=== PATIENT | female | born 1935 | race Caucasian/White ===

== ENCOUNTER 2022-02-03 18:18 | Inpatient (IN) | payer MEDICARE, MEDICAID ==
[~2022-02-03] VITALS: Ht 147.3 cm; Wt 49.5 kg
[2022-02-03 18:23] VITALS: BP 136/54
[2022-02-03 18:27] VITALS: BP 136/54
[2022-02-03] MEDS ORDERED: VANCOMYCIN 1,000 MG in DEXTROSE 5% 250 ML IV ONE (18:30)
[2022-02-03] MEDS ORDERED: MEROPENEM 1,000 MG in NACL 0.9% 50 ML IV ONE (18:30)
[2022-02-03] MEDS ORDERED: NACL 0.9% 1,000 ML IV ONE ×2 (18:30→21:25)
[2022-02-03] MEDS ORDERED: DILTIAZEM 125 MG in DEXTROSE 5% 100 ML IV ONE (18:50)
[2022-02-03 18:58] VITALS: BP 136/54
[2022-02-03] MEDS ORDERED: DILTIAZEM 125 MG/25 ML VIAL IV ONE (18:59)
[2022-02-03] MEDS ORDERED: MEROPENEM 1,000 MG VIAL IV ONE (19:00)
[2022-02-03] MEDS ORDERED: VANCOMYCIN 1,000 MG VIAL ONE (19:01)
--- NOTE | 2022-02-03 19:05 | NUR ---
PATIENT CAME BY EMS UNDER RESPIRATORY DISTRESS. PT WAS BREATHING AT A RATE 74. PRCESSED ABG AND PLACED PT ON BIPAP WITH 100%, IPAP OF 10 EPAP OF 5 BACK UP RATE OF 12. BIPAP IS PLUGGED INTO RED OUTLET, AMBU BAG AT BEDSIDE WITH SUCTION AND EXTRA FLOW METER. WILL CONTINUE TO MONITOR PATIENT.
[2022-02-03 19:19] LABS: BASOPHILS % (AUTO) 0.3 % (0.0-2.0); HEMATOCRIT 39.1 % (36-48); HEMOGLOBIN 12.6 g/dL (12.0-16.0); LYMPHOCYTES # (AUTO) 0.6 K/uL (2.5-16.5); LYMPHOCYTES % (AUTO) 4.5 % (20.5-51.1); MEAN CORPUSCULAR HEMOGLOBIN 28 pg (27-31); MEAN CORPUSCULAR HGB CONC 32 g/dL (33-37); MEAN CORPUSCULAR VOLUME 87.2 fL (80-94); MONOCYTES # (AUTO) 0.5 K/uL (0.8-1.0); MONOCYTES % (AUTO) 4.2 % (1.7-9.3); NEUTROPHILS # (AUTO) 11.7 K/uL (1.8-7.7); PLATELET COUNT (AUTO) 415 K/uL (140-450); RED BLOOD CELL COUNT(AUTO) 4.48 MIL/uL (4.20-5.40); RED CELL DISTRIBUTION WIDTH 15.3 % (11.6-13.7); WHITE BLOOD COUNT (AUTO) 12.9 K/uL (4.8-10.8)
[2022-02-03 19:34] LABS: PROTHROMBIN TIME 11.4 secs (10.8-13.4)
[2022-02-03 19:40] LABS: ALBUMIN 1.7 g/dL (3.4-5.0); ANION GAP 15.8 (8-16); ASPARTATE AMINOTRANSFERASE 28 U/L (15-37); CARBON DIOXIDE 26.9 mmol/L (21-32); CHLORIDE 125 mmol/L (98-107); CREATININE 1.8 mg/dL (0.6-1.3); GLUCOSE 156 mg/dL (74-106); TOTAL BILIRUBIN 0.3 mg/dL (0.0-1.0); UREA NITROGEN, BLOOD 60 mg/dL (7-18)
[2022-02-03 19:45] LABS: POTASSIUM 2.7 mmol/L (3.5-5.1)
[2022-02-03 19:47] LABS: SODIUM SERUM 165 mmol/L (136-145)
--- NOTE | 2022-02-03 20:10 | NUR ---
Patient lying in bed, alert, chest rise and fall symmetrical, no s/s of distress. Addendum: 02/03/22 at 2017 by [email or web address] Patient lying in bed, alert, chest rise and fall symmetrical, no s/s of distress. Diltiazem infusing at 10 mg/hr via left AC.
--- NOTE | 2022-02-03 20:24 | NUR ---
Patient lying in bed, alert, chest rise and fall symmetrical, no s/s of distress. HR 150, Diltiazem infusing increased to 15 mg/hr via left AC.
[2022-02-03 20:49] LABS: ALBUMIN 1.6 g/dL (3.4-5.0); ASPARTATE AMINOTRANSFERASE 28 U/L (15-37); CARBON DIOXIDE 25.6 mmol/L (21-32); CHLORIDE 125 mmol/L (98-107); CREATININE 1.7 mg/dL (0.6-1.3); GLUCOSE 165 mg/dL (74-106); TOTAL BILIRUBIN 0.3 mg/dL (0.0-1.0); UREA NITROGEN, BLOOD 58 mg/dL (7-18)
--- NOTE | 2022-02-03 20:53 | NUR ---
Dr. Aponte verbally informed patient's BP is 106/48, HR 147, and Diltiazem rate is at maximum rate of 15mg/hr.
[2022-02-03 20:55] LABS: POTASSIUM 2.6 mmol/L (3.5-5.1); SODIUM SERUM 163 mmol/L (136-145)
--- NOTE | 2022-02-03 21:14 | NUR ---
Dr. Aponte verbally reinformed of critical labs and recent vital signs. Dr. Aponte verbalized understanding.
[2022-02-03] MEDS ORDERED: KCL 20 MEQ/WATER INJ PREMIX 100 ML IV ONE (21:25)
[2022-02-03 21:36] VITALS: BP 97/66
[2022-02-03 22:18] LABS: APPEARANCE,URINE CLEAR (CLEAR); BILIRUBIN,URINE 2+ (NEGATIVE); BLOOD, URINE 2+ (NEGATIVE); COLOR,URINE ORANGE (YELLOW); LEUKOCYTE ESTERASE ,URINE NEGATIVE (NEGATIVE); NITRITE, URINE NEGATIVE (NEGATIVE); PH,URINE 5.5 (5.0-9.0); UGLUCOSE NEGATIVE (NEGATIVE)
--- NOTE | 2022-02-03 22:20 | NUR ---
Patient lying in bed, alert, chest rise and fall symmetrical, no s/s of distress. Diltiazem infusing at 15 mg/hr via left AC.
--- NOTE | 2022-02-03 22:23 | NUR ---
Note undone in EDM - 02/04/22 at 0710 by [email or web address] Patient lying in bed, alert, chest rise and fall symmetrical, no s/s of distress. HR 150, Diltiazem infusing at 15 mg/hr via left AC. Addendum: 02/04/22 at 0704 by [email or web address] Amendment undone in EDM - 02/04/22 at 0710 by [email or web address] Patient lying in bed, alert, chest rise and fall symmetrical, no s/s of distress. Diltiazem infusing at 15 mg/hr via left AC.
[2022-02-03 22:35] LABS: RBC,URINE 0-5 /HPF (0-5); TRICHOMONAS,URINE None Seen /HPF (None Seen); WBC,URINE 0-5 /HPF (0-5); YEAST,URINE None Seen /HPF (None Seen)
[2022-02-03 22:36] LABS: FINE GRANULAR CASTS,URINE 0-10 /LPF (None Seen)
--- NOTE | 2022-02-03 23:05 | NUR ---
Patient lying in bed, alert, chest rise and fall symmetrical, no s/s of distress. Diltiazem infusing at 15 mg/hr via left AC.
--- NOTE | 2022-02-03 23:10 | NUR ---
Note undone in EDM - 02/04/22 at 0711 by [email or web address] Patient lying in bed, alert, chest rise and fall symmetrical, no s/s of distress. HR 150, Diltiazem infusing at 15 mg/hr via left AC. Addendum: 02/04/22 at 0704 by [email or web address] Amendment undone in EDM - 02/04/22 at 0711 by [email or web address] Patient lying in bed, alert, chest rise and fall symmetrical, no s/s of distress. Diltiazem infusing at 15 mg/hr via left AC.
[2022-02-04] VITALS (7 sets, daily range): BP systolic 103–148; BP diastolic 38–58
[2022-02-04] MEDS ORDERED: PIPERACILLIN/TAZOBACTAM 3.375 GM in DEXTROSE 5% 50 ML IV SCH ×2
[2022-02-04] MEDS ORDERED: NACL 0.45% 1,000 ML IV SCH
--- NOTE | 2022-02-04 00:20 | NUR ---
Patient lying in bed, alert, chest rise and fall symmetrical, no s/s of distress. Diltiazem infusing at 15 mg/hr via left AC.
--- NOTE | 2022-02-04 00:24 | NUR ---
Note undone in EDM - 02/04/22 at 0709 by [email or web address] Patient lying in bed, alert, chest rise and fall symmetrical, no s/s of distress. HR 150, Diltiazem infusing at 15 mg/hr via left AC. Addendum: 02/04/22 at 0704 by [email or web address] Amendment undone in EDM - 02/04/22 at 0709 by [email or web address] Patient lying in bed, alert, chest rise and fall symmetrical, no s/s of distress. Diltiazem infusing at 15 mg/hr via left AC.
[2022-02-04] MEDS ORDERED: PIPERACILLIN/TAZOBACTAM 2.25 GM VIAL IV ONE ×4 (00:33→23:40)
[2022-02-04] MEDS: PIPERACILLIN/TAZOBACTAM 2.25 GM in DEXTROSE 5% 50 ML IV SCH ×4 (00:56→23:49)
[2022-02-04] MEDS ORDERED: METH4TAB1 PO ×2 (01:07→01:15)
[2022-02-04] MEDS ORDERED: AZIT250T3 PO (01:15)
[2022-02-04] MEDS ORDERED: ROC1PM IV (01:15)
[2022-02-04] MEDS ORDERED: MULT-1328 PO (01:21)
[2022-02-04] MEDS ORDERED: ASPI-1822 PO (01:21)
[2022-02-04] MEDS ORDERED: OMEG-64 PO (01:21)
[2022-02-04] MEDS ORDERED: VALS320T2 PO (01:21)
[2022-02-04] MEDS ORDERED: FURO-572 PO (01:21)
[2022-02-04] MEDS ORDERED: FLEPED RC (01:21)
[2022-02-04] MEDS ORDERED: ACET-2619 PO (01:21)
[2022-02-04] MEDS ORDERED: MIRABULK PO (01:21)
[2022-02-04] MEDS ORDERED: BISA-213 RC (01:21)
[2022-02-04] MEDS ORDERED: MAGN400S60 PO (01:21)
--- NOTE | 2022-02-04 02:10 | NUR ---
Note undone in EDM - 02/04/22 at 0709 by [email or web address] Patient lying in bed, alert, chest rise and fall symmetrical, no s/s of distress. HR 150, Diltiazem infusing at 15 mg/hr via left AC. Addendum: 02/04/22 at 0703 by [email or web address] Amendment undone in EDM - 02/04/22 at 0709 by [email or web address] Patient lying in bed, alert, chest rise and fall symmetrical, no s/s of distress. Diltiazem infusing at 15 mg/hr via left AC.
--- NOTE | 2022-02-04 02:11 | NUR ---
Patient lying in bed, alert, chest rise and fall symmetrical, no s/s of distress. Diltiazem infusing at 15 mg/hr via left AC.
--- NOTE | 2022-02-04 04:34 | NUR ---
Patient lying in bed, alert, chest rise and fall symmetrical, no s/s of distress. Diltiazem infusing at 15 mg/hr via left AC.
--- NOTE | 2022-02-04 04:35 | NUR ---
Note undone in EDM - 02/04/22 at 0708 by [email or web address] Patient lying in bed, alert, chest rise and fall symmetrical, no s/s of distress. HR 150, Diltiazem infusing at 15 mg/hr via left AC. Addendum: 02/04/22 at 0703 by [email or web address] Amendment undone in EDM - 02/04/22 at 0708 by [email or web address] Patient lying in bed, alert, chest rise and fall symmetrical, no s/s of distress. Diltiazem infusing at 15 mg/hr via left AC.
--- NOTE | 2022-02-04 04:57 | NUR ---
Patient lying in bed, alert, chest rise and fall symmetrical, no s/s of distress. Diltiazem infusion completed, Dr. Sandoval informed via telephone. Dr. Sandoval ordered EKG and stated, "If EKG result is Sinus Rhythm, don't resume Cardizem."
--- NOTE | 2022-02-04 05:55 | NUR ---
Dr. Sandoval informed via telephone that EKG result is Sinus Rhythm and per Dr. Sandoval previous order, Cardizem will not be resumed or reordered. Dr. Sandoval aware.
[2022-02-04 07:16] LABS: HEMATOCRIT 35.7 % (36-48); HEMOGLOBIN 11.2 g/dL (12.0-16.0); LYMPHOCYTES # (AUTO) 0.5 K/uL (2.5-16.5); LYMPHOCYTES % (AUTO) 3.6 % (20.5-51.1); MEAN CORPUSCULAR HEMOGLOBIN 28 pg (27-31); MEAN CORPUSCULAR HGB CONC 31 g/dL (33-37); MEAN CORPUSCULAR VOLUME 87.6 fL (80-94); MONOCYTES # (AUTO) 0.4 K/uL (0.8-1.0); MONOCYTES % (AUTO) 3.2 % (1.7-9.3); NEUTROPHILS # (AUTO) 12.9 K/uL (1.8-7.7); NEUTROPHILS % (AUTO) 93.2 % (42.2-75.2); PLATELET COUNT (AUTO) 349 K/uL (140-450); RED BLOOD CELL COUNT(AUTO) 4.08 MIL/uL (4.20-5.40); RED CELL DISTRIBUTION WIDTH 16.2 % (11.6-13.7); WHITE BLOOD COUNT (AUTO) 13.9 K/uL (4.8-10.8)
--- NOTE | 2022-02-04 07:28 | NUR ---
Change of shift report given to AM shift Nurse Bharath CONTE. AM shift Nurse Bharath RN verbalized understanding of report, no further questions.
[2022-02-04 07:33] LABS: ANION GAP 13.5 (8-16); CARBON DIOXIDE 26.2 mmol/L (21-32); CHLORIDE 127 mmol/L (98-107); GLUCOSE 162 mg/dL (74-106); UREA NITROGEN, BLOOD 57 mg/dL (7-18)
--- NOTE | 2022-02-04 07:56 | NUR ---
Assumed care of pt. Pt resting, eyes closed. On BIPAP WITH 50%, IPAP OF 10 EPAP OF 5 BACK UP RATE OF 12. Pt NSR on monitor at a rate of 74. Pt infusing 1/2NS @ 80ml/hr.
[2022-02-04] MEDS ORDERED: ZOLPIDEM 10 MG TAB PO PRN (08:05)
[2022-02-04] MEDS ORDERED: LORazepam 2 MG/ML VIAL IVP PRN (08:05)
[2022-02-04] MEDS ORDERED: ACETAMINOPHEN 325 MG TAB PO PRN (08:05)
[2022-02-04] MEDS ORDERED: DEXTROSE 5% 1,000 ML IV SCH (08:05)
[2022-02-04] MEDS ORDERED: ONDANSETRON 4 MG/2 ML VIAL IVP PRN (08:05)
[2022-02-04] MEDS ORDERED: MAG SULF 2000 MG/WATER PREMIX 50 ML IV PRN (08:05)
[2022-02-04] MEDS ORDERED: MORPHINE SULFATE 2 MG/ML SYR IVP PRN (08:05)
[2022-02-04] MEDS ORDERED: POTASSIUM CHLORIDE 10 MEQ TABER PO PRN (08:05)
[2022-02-04] MEDS ORDERED: DOCUSATE SODIUM 100 MG GELCAP PO PRN (08:05)
--- NOTE | 2022-02-04 08:08 | NUR ---
Dr. Moffett notified of critical results. Na- 164, K- 2.7.
[2022-02-04 08:12] LABS: POTASSIUM 2.7 mmol/L (3.5-5.1); SODIUM SERUM 164 mmol/L (136-145)
[2022-02-04] MEDS: ASPIRIN 81 MG TAB.CHEW PO SCH ×2 (08:21→08:39)
--- NOTE | 2022-02-04 08:40 | NUR ---
Pt unable to tolerate PO intake. Unable to give PO Aspirin, Potassium. Dr. Moffett notified.
--- NOTE | 2022-02-04 09:46 | NUR ---
Pharmacy called to mix K-rider with lido.
--- NOTE | 2022-02-04 09:59 | NUR ---
Fi02 reduced to 40%.
[2022-02-04] MEDS ORDERED: POTASSIUM CHLORIDE 40 MEQ, LIDOCAINE 1% 25 MG in NACL 0.9% 250 ML IV ONE (10:00)
[2022-02-04 10:05] LABS: ANION GAP 11.2 (8-16); CARBON DIOXIDE 26.5 mmol/L (21-32); CHLORIDE 128 mmol/L (98-107); GLUCOSE 155 mg/dL (74-106); UREA NITROGEN, BLOOD 55 mg/dL (7-18)
[2022-02-04 10:10] LABS: SODIUM SERUM 163 mmol/L (136-145)
[2022-02-04 10:11] LABS: POTASSIUM 2.7 mmol/L (3.5-5.1)
--- NOTE | 2022-02-04 10:14 | NUR ---
Critical result received. Na-163, K-2.7
--- NOTE | 2022-02-04 11:30 | NUR ---
Per verbal order attempting to titrate pt off bipap. Pt placed on 6L NC. Pt appears comfortable, still tachypneic. VS charted.
--- NOTE | 2022-02-04 11:30 | NUR ---
PER BRITTANY AGUILAR PATIENT TAKEN OFF BIPAP TO MASK BY MARCELO/ED BINDING BENCH WORKER; PLACED ON SUPPLEMENTAL OXYGEN AT 6 LPM VIA NC
[2022-02-04] MEDS ORDERED: POTASSIUM CHLORIDE 10 MEQ TABER PO SCH (11:40)
[2022-02-04] MEDS: POTASSIUM CHL 20 MEQ / DEXT 5% 1,000 ML IV SCH ×2 (13:31→22:20)
--- NOTE | 2022-02-04 17:20 | NUR ---
Drama Therapist bedside.
[2022-02-04] MEDS: ALBUTEROL SULFATE/IPRATROPIU 3 ML SOL IH SCH ×3 (17:40→22:36)
[2022-02-04 17:42] LABS: ANION GAP 8.5 (8-16); CHLORIDE 129 mmol/L (98-107); CREATININE 0.7 mg/dL (0.6-1.3); GLUCOSE 159 mg/dL (74-106); POTASSIUM 3.5 mmol/L (3.5-5.1); UREA NITROGEN, BLOOD 44 mg/dL (7-18)
[2022-02-04 17:44] LABS: SODIUM SERUM 161 mmol/L (136-145)
--- NOTE | 2022-02-04 20:07 | NUR ---
Patient will be admitted to care of Bharath CONTE. Admited to ICU. Will go to room 3. Belongings list completed.
[2022-02-04] MEDS ORDERED: SODIUM BICARBONATE 650 MG TAB PO SCH (21:00)
[2022-02-04] MEDS: methylPREDNISolone SS 40 MG/ML VIAL IVP SCH (22:21)
[2022-02-05] VITALS (21 sets, daily range): BP systolic 116–169; BP diastolic 37–87
[2022-02-05] MEDS ORDERED: POTASSIUM CHL 20 MEQ/D5-1/2NS 0 ML IV ONE (01:53)
[2022-02-05] MEDS: POTASSIUM CHL 20 MEQ / DEXT 5% 1,000 ML IV SCH (02:14)
[2022-02-05] MEDS: ALBUTEROL SULFATE/IPRATROPIU 3 ML SOL IH SCH ×3 (03:11→13:42)
[2022-02-05 05:45] LABS: BASOPHILS % (AUTO) 0.1 % (0.0-2.0); EOSINOPHILS # (AUTO) 0.1 K/uL (0-0.4); EOSINOPHILS % (AUTO) 0.5 % (0.0-4.0); HEMATOCRIT 35.6 % (36-48); HEMOGLOBIN 11.2 g/dL (12.0-16.0); LYMPHOCYTES # (AUTO) 0.3 K/uL (2.5-16.5); LYMPHOCYTES % (AUTO) 2.1 % (20.5-51.1); MEAN CORPUSCULAR HEMOGLOBIN 27 pg (27-31); MEAN CORPUSCULAR HGB CONC 32 g/dL (33-37); MEAN CORPUSCULAR VOLUME 86.9 fL (80-94); MONOCYTES # (AUTO) 0.1 K/uL (0.8-1.0); NEUTROPHILS # (AUTO) 12.6 K/uL (1.8-7.7); NEUTROPHILS % (AUTO) 96.3 % (42.2-75.2); PLATELET COUNT (AUTO) 229 K/uL (140-450); RED CELL DISTRIBUTION WIDTH 16.3 % (11.6-13.7); WHITE BLOOD COUNT (AUTO) 13.1 K/uL (4.8-10.8)
[2022-02-05 06:17] LABS: ANION GAP 9.9 (8-16); CARBON DIOXIDE 28.8 mmol/L (21-32); CHLORIDE 124 mmol/L (98-107); CREATININE 0.7 mg/dL (0.6-1.3); GLUCOSE 265 mg/dL (74-106); POTASSIUM 3.7 mmol/L (3.5-5.1); UREA NITROGEN, BLOOD 31 mg/dL (7-18)
[2022-02-05 06:28] LABS: MAGNESIUM 2.4 mg/dL (1.8-2.4); PHOSPHORUS 2.3 mg/dL (2.5-4.9)
[2022-02-05 06:41] LABS: SODIUM SERUM 159 mmol/L (136-145)
--- NOTE | 2022-02-05 07:35 | NUR ---
GOT REPORT FROM THE NIGHT NURSE, PT SLEEPING NO SOB NC ON. [id number]
[2022-02-05] MEDS: PIPERACILLIN/TAZOBACTAM 2.25 GM in DEXTROSE 5% 50 ML IV SCH ×3 (08:22→23:27)
[2022-02-05] MEDS: methylPREDNISolone SS 40 MG/ML VIAL IVP SCH ×2 (08:23→20:50)
[2022-02-05] MEDS: ASPIRIN 81 MG TAB.CHEW PO SCH (08:23)
[2022-02-05] MEDS: ENOXAPARIN 30 MG/0.3 ML SYR SUBQ SCH (09:34)
[2022-02-05] MEDS: DEXT 5% / NACL 0.45% 1,000 ML IV SCH ×2 (09:43→21:40)
--- NOTE | 2022-02-05 10:39 | NUR ---
FAMILY MEMBER AT BED SIDE. PT SEEMS SLEEPY, HOB UP 30 DEGREE AND NC ON WITH 4 LITTER ON.[id number]
--- NOTE | 2022-02-05 10:45 | NUR ---
PATIENT HAS BEEN SCREENED AND CATEGORIZED HIGH NUTRITION RISK. PATIENT WILL BE SEEN WITHIN 1-2 DAYS OF ADMISSION. 02/04/2212/27/[address] REVIEW[address] BY MELODY HAMMER RD
[2022-02-05] MEDS ORDERED: ZOLPIDEM 5 MG TAB PO PRN (11:00)
[2022-02-05] MEDS ORDERED: DEXTROSE 50% 50 ML SYR IVP PRN (12:30)
--- NOTE | 2022-02-05 14:39 | NUR ---
PT. WITH LOW VERNA SCALE AT MODERATE TO HIGH RISK, CONTINUE TO FOLLOW PRESSURE INJURY PREVENTION INTERVENTIONS. -POSITIONING: TURN AND REPOSITION PATIENT Q 2H OR SOONER USE PILLOWS TO KEEP BONY PROMINENCES FROM DIRECT CONTACT WITH SURFACES USE REPOSITIONING WEDGES TO PROVIDE 30-DEGREE ANGLE FOR SIDE LYING POSITIONS OFFLOADING OR FOAM DRESSING TO ALL TUBING TO PREVENT MEDICAL DEVICES RELATED PRESSURE INJURY -RE-EVALUATING AND MANAGING INCONTINENCE MONITOR SKIN CONDITION DURING POSITION CHANGE DO NOT MASSAGE REDNESS, BONY PROMINENCES FREQUENT JOMAR-CARE AND PROVIDE BARRIER CREAMS PRN IF SOILING MOISTURE CONTROL BY OFFER BED HOLT/URINAL /ABSORBENT PAD TO WICK AND HOLD MOISTURE KEEP SKIN DRY AND PROTECT FROM FRICTION -MANAGE FRICTION/SHEAR/MOBILITY KEEP HOB AT THE LOWEST LEVEL OF ELEVATION NO MORE THAN 30 DEGREE UNLESS OTHERWISE CONTRAINDICATED USE LIFT SHEET OR TRANSFER DEVICE TO MOVE PATIENT AND PREVENT LATERAL SHEER. PROTECT HEELS, ELBOWS BONY PROMINENCES WITH SKIN BERRIES OR FOAM DRESSING IF EXPOSED TO FRICTION OFFLOAD BILATERAL HEELS BY PLACING PILLOWS UNDER CALVES AT ALL TIMES, UNLESS OTHERWISE CONTRAINDICATED -PRESSURE REDISTRIBUTION SURFACE THERAPY ADELA ISOFLEX MATTRESS -NUTRITION: PLEASE FOLLOW RD RECOMMENDATIONS AND OFFER NUTRITION SUPPLEMENTS IF ORDERED. PLEASE CONTACT WOUND CARE NURSE FOR ANY QUESTION AND CHANGE OF WOUND CONDITION
--- NOTE | 2022-02-05 15:03 | NUR ---
02/05/22 RD INITIAL ASSESSMENT COMPLETED PLEASE REFER TO NUTRITION ASSESSMENT UNDER CARE ACTIVITY FOR ESTIMATED NUTRITIONAL NEEDS. 1. CONTINUE CARDIAC DIET TOLERATED 2. RECOMMEND ENSURE BID TO INCREASE PROTEIN-ENERGY PO INTAKE - ENSURE BID WILL PROVIDE 700 KCALS AND 40 GM PROTEIN DAILY TO HELP PATIENT MEET 100% OF ESTIMATED ENERGY NEEDS 3. RD TO FOLLOW-UP 3-5 DAYS, MODERATE RISK REVIEWED BY MELODY HAMMER RD
[2022-02-05] MEDS: BLOOD GLUCOSE MONITORING 1 DEV DEV FS SCH ×2 (16:30→21:10)
--- NOTE | 2022-02-05 16:31 | NUR ---
CHANGED PT FOR COMFORT, 022L NC NOW.LUA DRAINING TO THE GRAVITY, THERE IS RED SPOT ON THE ON THE BUTTOCKS TOOK A PICTURE, SKIN IS NOT BROKEN. OVER ALL PT IS STABLE .[id number]
[2022-02-05] MEDS: INSULIN LISPRO SLIDING SCALE 100 UNITS/ML VIAL SUBQ PRN (17:04)
--- NOTE | 2022-02-05 18:46 | NUR ---
PT WILL BE TRANSFERRING TO [facility] IN BED 125B .[id number]
--- NOTE | 2022-02-05 19:15 | NUR ---
RECEIVED PATIENT ON BED AWAKE, ALERT BUT SOMEWHAT CONFUSE. ON 2 LITERS SO2 94-95% WITH SOB ON EXERTION. IVF IN PROGRESS IS D5 1/2 SALINE AT 75 ML/HR VIA G20 IV CANNULA ON RIGHT WRIST, PATENT AND INTACT. WITH ANOTHER PERIPHERAL LINE G24 TO LEFT WRIST; INTACT. ABDOMEN IS SOFT, NON TENDER WITH HYPOACTIVE BOWEL SOUNDS. LUA CATH IN SITU TO GRAVITY DRAINAGE BAG DRAINING TO CLEAR YELLOW URINE OUTPUT;PATENT AND INTACT.
--- NOTE | 2022-02-05 20:40 | NUR ---
RECEIVED PT FROM ICU, PATIENT IS AWAKE, CONFUSED. RE-ORIENTED TO TIME. PLACE AND DATE. NO S/SX OF PAIN NOR DISCOMFORT. NO RESPIRATORY DISTRESS NOTED. IVF INFUSING WELL ORDERED. ON BEDREST WITH LUA CATHETER DRAINING YELLOW URINE. SKIN WARM AND DRY TO TOUCH. PERINEAL CARE RENDERED, MADE COMFORTABLE IN BED. SAFETY PRECAUTION IN PLACE, CALL LIGHT IN REACH.
--- NOTE | 2022-02-05 20:40 | NUR ---
TRANSFERRED TO TELEMETRY PER BED IN FAIR CONDITION; ENDORSED TO INÉS LUKE FOR CONTINUITY OF CARE.
--- NOTE | 2022-02-05 21:04 | NUR ---
PATIENT'S SON ALONDRA WAS INFORMED AND AWARE OF PATIENT'S TRANSFER TO TELEMETRY.
--- NOTE | 2022-02-05 21:17 | NUR ---
INFORMED DR. MICHEL OF BP-161/60 HR-88, NEW ORDERS GIVEN AND WILL BE CARRIED OUT.
[2022-02-05] MEDS: hydrALAZINE 20 MG/ML VIAL IVP PRN (23:27)
[2022-02-06] VITALS: BP 162/62
--- NOTE | 2022-02-06 | NUR ---
REPOSITIONED PT. HEAD OF THE BED ELEVATED. NO DISTRESS NOTED.
--- NOTE | 2022-02-06 02:00 | NUR ---
PATIENT IS ASLEEP. NO S/SX OF PAIN NOR DISCOMFORT. CALL LIGHT IN REACH.
[2022-02-06 04:00] VITALS: BP 154/56
[2022-02-06 06:07] LABS: BASOPHILS % (AUTO) 0.3 % (0.0-2.0); EOSINOPHILS # (AUTO) 0.1 K/uL (0-0.4); EOSINOPHILS % (AUTO) 0.6 % (0.0-4.0); HEMATOCRIT 34.8 % (36-48); LYMPHOCYTES # (AUTO) 0.6 K/uL (2.5-16.5); LYMPHOCYTES % (AUTO) 4.1 % (20.5-51.1); MEAN CORPUSCULAR HEMOGLOBIN 27 pg (27-31); MEAN CORPUSCULAR HGB CONC 32 g/dL (33-37); MEAN CORPUSCULAR VOLUME 86.2 fL (80-94); MONOCYTES # (AUTO) 0.4 K/uL (0.8-1.0); PLATELET COUNT (AUTO) 221 K/uL (140-450); RED BLOOD CELL COUNT(AUTO) 4.04 MIL/uL (4.20-5.40); RED CELL DISTRIBUTION WIDTH 15.8 % (11.6-13.7); WHITE BLOOD COUNT (AUTO) 14.1 K/uL (4.8-10.8)
--- NOTE | 2022-02-06 06:18 | NUR ---
PATIENT IS ASLEEP. ALL NEEDS ATTENDED TO. NO DISTRESS NOTED. SAFETY PRECAUTIONS MAINTAINED DURING THE SHIFT, CALL LIGHT REMAINED WITHIN REACH.
[2022-02-06 06:22] LABS: ANION GAP 12.7 (8-16); CARBON DIOXIDE 26.9 mmol/L (21-32); CHLORIDE 120 mmol/L (98-107); CREATININE 0.6 mg/dL (0.6-1.3); GLUCOSE 166 mg/dL (74-106); POTASSIUM 3.6 mmol/L (3.5-5.1); UREA NITROGEN, BLOOD 23 mg/dL (7-18)
[2022-02-06] MEDS: BLOOD GLUCOSE MONITORING 1 DEV DEV FS SCH ×4 (06:32→21:26)
[2022-02-06] MEDS: INSULIN LISPRO SLIDING SCALE 100 UNITS/ML VIAL SUBQ PRN (06:32)
[2022-02-06 07:09] LABS: SODIUM SERUM 156 mmol/L (136-145)
[2022-02-06 08:00] VITALS: BP 101/64
[2022-02-06] MEDS: PIPERACILLIN/TAZOBACTAM 2.25 GM in DEXTROSE 5% 50 ML IV SCH ×3 (08:59→23:47)
[2022-02-06] MEDS: ASPIRIN 81 MG TAB.CHEW PO SCH (09:59)
[2022-02-06] MEDS: lisinopriL 5 MG TAB PO SCH (09:59)
[2022-02-06] MEDS: ENOXAPARIN 30 MG/0.3 ML SYR SUBQ SCH (09:59)
[2022-02-06] MEDS: methylPREDNISolone SS 40 MG/ML VIAL IVP SCH (09:59)
--- NOTE | 2022-02-06 10:35 | NUR ---
WOUND CARE EVALUATION NOTE: SKIN ASSESSMENT DONE WITH THIS 82 Y/O PT ADMITTED WITH INITIAL DX RESPIRATORY DISTRESS PAST MEDICAL HX INCLUDES DEMENTIA, HYPERTENSION, COPD, INTERSTITIAL LUNG DISEASE. PT ADMITTED FROM WITH PRESSURE INJURY TO SACRALCOCCYX. SKIN IS WARM AND DRY, BILATERAL LOWER EXTREMITY EDEMA. DORSAL PEDAL PULSES PRESENT AND DIMINISHES. CAPILLARY REFILLED >3 SEC. X 10 TOES. F/C PATENT WITH SMALL AMOUNT VIANEY COLOR URINE OUT PUT OBSERVED. INTEGUMENTARY: -LIPS AND ORAL MUCOSA DRY AND CLEAN. SKIN INTACT. -MOISTURE ASSOCIATED SKIN DAMAGE(MASD) TO: B/L GROINS, MEDIAL THIGHS SKIN REDNESS, PEELING -PRESSURE INJURY DTI, SACROCOCCYX 3X6CM, WOUND BED 100% MAROON, MOIST, NO ODOR, JOMAR-WOUND SKIN MOIST SURROUNDING NON-BLANCHABLE REDNESS INDICATED FURTHER DAMAGE. RECOMMENDATIONS: -APPLY THIN LAYER OF Z GUARD TO R/L GROINS EXTENDED TO MEDIAL THIGHS BID AND PRN IF SOILING -APPLY FOAM DRESSING TO SACROCOCCYX DAILY AND PRN IF SOILING -POSITIONING: TURN AND REPOSITION PATIENT Q 2H OR SOONER USE PILLOWS TO KEEP BONY PROMINENCES FROM DIRECT CONTACT WITH SURFACES USE REPOSITIONING WEDGES TO PROVIDE 30-DEGREE ANGLE FOR SIDE LYING POSITIONS OFFLOADING OR FOAM DRESSING TO ALL TUBING TO PREVENT MEDICAL DEVICES RELATED PRESSURE INJURY -RE-EVALUATING AND MANAGING INCONTINENCE MONITOR SKIN CONDITION DURING POSITION CHANGE DO NOT MASSAGE REDNESS, BONY PROMINENCES, DO NOT USE DONUT-TYPE DEVICES FREQUENT JOMAR-CARE AND PROVIDE BARRIER CREAMS PRN IF SOILING MOISTURE CONTROL BY OFFER BED HOLT/URINAL /ABSORBENT PAD TO WICK AND HOLD MOISTURE. KEEP SKIN DRY AND PROTECT FROM FRICTION -MANAGE FRICTION/SHEAR/MOBILITY KEEP HOB AT THE LOWEST LEVEL OF ELEVATION NO MORE THAN 30 DEGREES UNLESS OTHERWISE CONTRAINDICATED USE LIFT SHEET OR TRANSFER DEVICE TO MOVE PATIENT AND PREVENT LATERAL SHEER. CONSIDER TRAPEZE IF APPROPRIATE PROTECT HEELS, ELBOWS BONY PROMINENCES WITH SKIN BERRIES OR FOAM DRESSING IF EXPOSED TO FRICTION OFFLOAD BILATERAL HEELS BY PLACING PILLOWS UNDER CALVES AT ALL TIMES, UNLESS OTHERWISE CONTRAINDICATED -PRESSURE REDISTRIBUTION SURFACE THERAPY ADELA ISOFLEX MARITZA MATTRESS -NUTRITION: PLEASE FOLLOW RD RECOMMENDATIONS AND OFFER NUTRITION SUPPLEMENTS IF ORDERED.
[2022-02-06 12:00] VITALS: BP 111/66
[2022-02-06] MEDS: DEXT 5% / NACL 0.45% 1,000 ML IV SCH (12:05)
[2022-02-06] MEDS: FOAM DRESSING TP SCH (13:00)
[2022-02-06] MEDS: Z-GUARD PASTE TP SCH (13:00)
[2022-02-06] MEDS: ALBUTEROL SULFATE/IPRATROPIU 3 ML SOL IH SCH ×2 (13:00→19:00)
[2022-02-06 16:00] VITALS: BP 130/97
[2022-02-06 17:20] LABS: ANION GAP 12.7 (8-16); CARBON DIOXIDE 26.4 mmol/L (21-32); CHLORIDE 121 mmol/L (98-107); CREATININE 0.5 mg/dL (0.6-1.3); GLUCOSE 126 mg/dL (74-106); POTASSIUM 4.1 mmol/L (3.5-5.1); UREA NITROGEN, BLOOD 28 mg/dL (7-18)
[2022-02-06 17:26] LABS: SODIUM SERUM 156 mmol/L (136-145)
--- NOTE | 2022-02-06 18:11 | NUR ---
PATIENT REMAINS STABLE THROUGHOUT SHIFT. PATIENT WITH POOR APPETITE. MD AWARE. ALL NEEDS ANTICIPATED AND MET. WILL CONTINUE PLAN OF CARE.
--- NOTE | 2022-02-06 19:20 | NUR ---
RECEIVED REPORT FROM DAY SHIFT NURSE ANIKA. PATIENT IN BED APPEARS TO BE COMFORTABLE WITH O2 AT 2L NC. NO S/S OF RESPIRATORY DISTRESS. RESPIRATION EVEN UNLABORED. IVF D5 1/2 NS INFUSING AT 75 ML/HR ON THE RAC. ALL SAFETY PRECAUTIONS ARE IN PLACE. CALL LIGHT WITHIN REACH. LUA CATHETER DRAINING CLEAR YELLOW URINE.
[2022-02-06 20:00] VITALS: BP 119/74
--- NOTE | 2022-02-06 21:26 | NUR ---
CHECKED BLOOD SUGAR WAS 113, NO INSULIN COVERAGE NEEDED.
[2022-02-07] VITALS: BP 161/81
[2022-02-07] MEDS: ALBUTEROL SULFATE/IPRATROPIU 3 ML SOL IH SCH ×4 (01:00→20:12)
[2022-02-07] MEDS: Z-GUARD PASTE TP SCH ×2 (01:00→13:00)
[2022-02-07] MEDS: DEXT 5% / NACL 0.45% 1,000 ML IV SCH ×3 (01:25→19:45)
[2022-02-07 04:00] VITALS: BP 175/62
[2022-02-07] MEDS: hydrALAZINE 20 MG/ML VIAL IVP PRN (04:50)
--- NOTE | 2022-02-07 04:50 | NUR ---
PATIENT BP- 178/71 P-76 HYDRALAZINE 10 MG ADMINISTERED ORDERED.
[2022-02-07 05:27] LABS: BASOPHILS # (AUTO) 0.1 K/uL (0.00-0.22); BASOPHILS % (AUTO) 0.4 % (0.0-2.0); EOSINOPHILS # (AUTO) 0.1 K/uL (0-0.4); EOSINOPHILS % (AUTO) 0.3 % (0.0-4.0); HEMATOCRIT 36.3 % (36-48); HEMOGLOBIN 11.7 g/dL (12.0-16.0); LYMPHOCYTES % (AUTO) 5.6 % (20.5-51.1); MEAN CORPUSCULAR HEMOGLOBIN 28 pg (27-31); MEAN CORPUSCULAR HGB CONC 32 g/dL (33-37); MEAN CORPUSCULAR VOLUME 85.8 fL (80-94); MONOCYTES # (AUTO) 1.1 K/uL (0.8-1.0); NEUTROPHILS # (AUTO) 15.9 K/uL (1.8-7.7); NEUTROPHILS % (AUTO) 87.7 % (42.2-75.2); PLATELET COUNT (AUTO) 238 K/uL (140-450); RED BLOOD CELL COUNT(AUTO) 4.23 MIL/uL (4.20-5.40); RED CELL DISTRIBUTION WIDTH 15.8 % (11.6-13.7); WHITE BLOOD COUNT (AUTO) 18.1 K/uL (4.8-10.8)
[2022-02-07 06:13] LABS: CARBON DIOXIDE 27.6 mmol/L (21-32); CHLORIDE 118 mmol/L (98-107); CREATININE 0.5 mg/dL (0.6-1.3); GLUCOSE 112 mg/dL (74-106); POTASSIUM 3.6 mmol/L (3.5-5.1); SODIUM SERUM 154 mmol/L (136-145); UREA NITROGEN, BLOOD 22 mg/dL (7-18)
[2022-02-07] MEDS: BLOOD GLUCOSE MONITORING 1 DEV DEV FS SCH ×4 (06:32→20:54)
--- NOTE | 2022-02-07 07:00 | NUR ---
TX NOT GIVEN PT IS SLEEPING. NO DISTRESS NOTED. WILL CONTINUE TO MONITOR.
--- NOTE | 2022-02-07 07:15 | NUR ---
GAVE REPORT TO DAY SHIFT NURSE HIEU FOR CONTINUITY OF CARE.
--- NOTE | 2022-02-07 07:16 | NUR ---
RECEIVED PT FROM TUCK POINTER NURSE FOR CONTINUITY OF CARE. PT IN BED. AWAKE AOX1 TO NAME. RESPIRATIONS EVEN ON 2L OF O2 VIA N/C. IV ON R A/C INFUSING AT [address] DRAINING TO GRAVITY. CALL LIGHT WITHIN REACH. ALL SAFETY PRECAUTIONS IN PLACE.
[2022-02-07 08:00] VITALS: BP 144/48
[2022-02-07] MEDS: PIPERACILLIN/TAZOBACTAM 2.25 GM in DEXTROSE 5% 50 ML IV SCH ×3 (08:00→23:27)
--- NOTE | 2022-02-07 08:00 | NUR ---
Patient's Plan of Care was discussed and reviewed with BONG: CHARITY
[2022-02-07] MEDS: methylPREDNISolone SS 40 MG/ML VIAL IVP SCH (09:00)
[2022-02-07] MEDS: ASPIRIN 81 MG TAB.CHEW PO SCH (09:15)
[2022-02-07] MEDS: lisinopriL 5 MG TAB PO SCH (09:15)
[2022-02-07] MEDS: ENOXAPARIN 30 MG/0.3 ML SYR SUBQ SCH (09:17)
--- NOTE | 2022-02-07 10:13 | NUR ---
FAMILY AT BEDSIDE
[2022-02-07 12:00] VITALS: BP 134/52
[2022-02-07] MEDS: FOAM DRESSING TP SCH (13:00)
--- NOTE | 2022-02-07 13:00 | NUR ---
TX NOT GIVEN EMERGENCY ELSEWHERE NO DISTRESS NOTED PT SLEEPING
[2022-02-07 16:00] VITALS: BP 130/56
[2022-02-07 20:00] VITALS: BP 124/61
--- NOTE | 2022-02-07 20:54 | NUR ---
BLOOD SUGAR CHECKED WAS 119 , NO INSULIN COVERAGE NEEDED.
[2022-02-08] VITALS: BP 138/51
[2022-02-08] MEDS: Z-GUARD PASTE TP SCH ×2 (01:00→13:00)
[2022-02-08 04:00] VITALS: BP 149/58
--- NOTE | 2022-02-08 05:17 | NUR ---
PATIENT SLEEPING. BREATHING REGULAR NON LABORED. O2 AT 2L NC SATING 100%. AFEBRILE. SKIN WARM AND DRY TO THE TOUCH. IVF D5 1/2 NS INFUSING 50 ML/HR. LUA CATHETER DRAINING CLEAR YELLOW URINE. ALL SAFETY PRECAUTIONS ARE IN PLACE. CALL LIGHT WITHIN REACH. HEAD OF BED ELEVATED. BED WHEELS LOCKED.
[2022-02-08 05:48] LABS: BASOPHILS % (AUTO) 0.1 % (0.0-2.0); EOSINOPHILS % (AUTO) 0.2 % (0.0-4.0); HEMOGLOBIN 10.4 g/dL (12.0-16.0); LYMPHOCYTES # (AUTO) 1.1 K/uL (2.5-16.5); MEAN CORPUSCULAR HEMOGLOBIN 28 pg (27-31); MEAN CORPUSCULAR HGB CONC 32 g/dL (33-37); MEAN CORPUSCULAR VOLUME 85.9 fL (80-94); MONOCYTES % (AUTO) 6.2 % (1.7-9.3); NEUTROPHILS # (AUTO) 13.7 K/uL (1.8-7.7); NEUTROPHILS % (AUTO) 86.5 % (42.2-75.2); PLATELET COUNT (AUTO) 228 K/uL (140-450); RED BLOOD CELL COUNT(AUTO) 3.72 MIL/uL (4.20-5.40); RED CELL DISTRIBUTION WIDTH 15.8 % (11.6-13.7); WHITE BLOOD COUNT (AUTO) 15.9 K/uL (4.8-10.8)
[2022-02-08 06:30] LABS: ANION GAP 9.4 (8-16); CARBON DIOXIDE 30.2 mmol/L (21-32); CHLORIDE 115 mmol/L (98-107); CREATININE 0.5 mg/dL (0.6-1.3); GLUCOSE 99 mg/dL (74-106); POTASSIUM 3.6 mmol/L (3.5-5.1); SODIUM SERUM 151 mmol/L (136-145); UREA NITROGEN, BLOOD 19 mg/dL (7-18)
[2022-02-08] MEDS: BLOOD GLUCOSE MONITORING 1 DEV DEV FS SCH ×4 (06:33→20:57)
[2022-02-08] MEDS: ALBUTEROL SULFATE/IPRATROPIU 3 ML SOL IH SCH ×4 (07:00→20:49)
--- NOTE | 2022-02-08 07:27 | NUR ---
ENDORSED PATIENT TO AM SHIFT NURSE FOR CONTINUITY OF CARE.
--- NOTE | 2022-02-08 07:28 | NUR ---
RECEIVED PT FROM WARD SERVICE SUPERVISOR NURSE FOR CONTINUITY OF CARE. PT IN BED ASLEEP. VISIBLE RISE/FALL OF CHEST. RESPIRATIONS EVEN AND UNLABORED. NO DISTRESS NOTED. CALL LIGHT WITHIN REACH. ALL SAFETY MEASURES IN PLACE.
[2022-02-08 08:00] VITALS: BP 147/59
[2022-02-08] MEDS: ASPIRIN 81 MG TAB.CHEW PO SCH (08:49)
[2022-02-08] MEDS: lisinopriL 5 MG TAB PO SCH (08:50)
[2022-02-08] MEDS: ENOXAPARIN 30 MG/0.3 ML SYR SUBQ SCH (08:54)
[2022-02-08] MEDS: methylPREDNISolone SS 40 MG/ML VIAL IVP SCH (11:01)
[2022-02-08] MEDS: PIPERACILLIN/TAZOBACTAM 2.25 GM in DEXTROSE 5% 50 ML IV SCH (11:01)
[2022-02-08 12:00] VITALS: BP 145/52
[2022-02-08] MEDS: FOAM DRESSING TP SCH (13:00)
[2022-02-08] MEDS: DEXT 5% / NACL 0.45% 1,000 ML IV SCH (13:35)
[2022-02-08 16:00] VITALS: BP 126/53
[2022-02-08] MEDS: INSULIN LISPRO SLIDING SCALE 100 UNITS/ML VIAL SUBQ PRN (17:01)
--- NOTE | 2022-02-08 19:18 | NUR ---
ENDORSED PT TO TIP CEMENTER NURSE FOR CONTINUITY OF CARE. PT IN STABLE CONDITION.
--- NOTE | 2022-02-08 19:45 | NUR ---
PATIENT IN BED AWAKE ON 2L NC SATING 100%. NO SOB. RESPIRATION REGULAR NON LABORED. FLACC 0. LUA CATHETER IN PLACE DRAINING CLEAR YELLOW URINE. IVF D5 1/2 NS INFUSING AT 50 ML/HR. CALL LIGHT WITHIN REACH. ALL SAFETY MEASURES ARE IN PLACE.
[2022-02-08 20:00] VITALS: BP 141/67
--- NOTE | 2022-02-08 20:57 | NUR ---
CHECKED BLOOD SUGAR WAS 129, NO INSULIN COVERAGE NEEDED.
[2022-02-09] VITALS: BP 135/60
[2022-02-09] MEDS: ALBUTEROL SULFATE/IPRATROPIU 3 ML SOL IH SCH ×3 (01:20→13:24)
[2022-02-09] MEDS: Z-GUARD PASTE TP SCH ×2 (01:26→12:43)
[2022-02-09 04:00] VITALS: BP 136/60
[2022-02-09 05:27] LABS: ANION GAP 7.1 (8-16); CARBON DIOXIDE 29.4 mmol/L (21-32); CHLORIDE 112 mmol/L (98-107); CREATININE 0.4 mg/dL (0.6-1.3); GLUCOSE 97 mg/dL (74-106); POTASSIUM 3.5 mmol/L (3.5-5.1); SODIUM SERUM 145 mmol/L (136-145); UREA NITROGEN, BLOOD 18 mg/dL (7-18)
[2022-02-09 05:29] LABS: BASOPHILS % (AUTO) 0.1 % (0.0-2.0); EOSINOPHILS # (AUTO) 0.1 K/uL (0-0.4); EOSINOPHILS % (AUTO) 0.8 % (0.0-4.0); HEMATOCRIT 29.9 % (36-48); HEMOGLOBIN 9.8 g/dL (12.0-16.0); LYMPHOCYTES # (AUTO) 1.4 K/uL (2.5-16.5); LYMPHOCYTES % (AUTO) 8.3 % (20.5-51.1); MEAN CORPUSCULAR HEMOGLOBIN 28 pg (27-31); MEAN CORPUSCULAR HGB CONC 33 g/dL (33-37); MEAN CORPUSCULAR VOLUME 84.2 fL (80-94); MONOCYTES # (AUTO) 0.9 K/uL (0.8-1.0); MONOCYTES % (AUTO) 5.5 % (1.7-9.3); NEUTROPHILS # (AUTO) 14.4 K/uL (1.8-7.7); NEUTROPHILS % (AUTO) 85.3 % (42.2-75.2); PLATELET COUNT (AUTO) 249 K/uL (140-450); RED BLOOD CELL COUNT(AUTO) 3.56 MIL/uL (4.20-5.40); RED CELL DISTRIBUTION WIDTH 15.3 % (11.6-13.7); WHITE BLOOD COUNT (AUTO) 16.9 K/uL (4.8-10.8)
[2022-02-09] MEDS: BLOOD GLUCOSE MONITORING 1 DEV DEV FS SCH ×4 (06:55→21:28)
--- NOTE | 2022-02-09 07:29 | NUR ---
BEDSIDE ENDORSEMENT GIVEN TO DAY SHIFT NURSE FOR CONTINUITY OF CARE.
--- NOTE | 2022-02-09 07:30 | NUR ---
RECEIVED REPORT FROM CLAIM PROCESSING SPECIALIST NURSE. PATIENT IN BED APPEARS TO BE COMFORTABLE WITH O2 AT 2L NC. NO S/S OF RESPIRATORY DISTRESS. RESPIRATION EVEN UNLABORED. IVF D5 1/2 NS INFUSING AT 75 ML/HR ON THE RAC. ALL SAFETY PRECAUTIONS ARE IN PLACE. CALL LIGHT WITHIN REACH. LUA CATHETER DRAINING CLEAR YELLOW URINE.
[2022-02-09 08:00] VITALS: BP 122/47
--- NOTE | 2022-02-09 08:00 | NUR ---
IV INFILTRATED, UNABLE TO REINSERT IV. NOTIFIED MD, ORDERED TO STOP IV FLUIDS
[2022-02-09] MEDS: ENOXAPARIN 30 MG/0.3 ML SYR SUBQ SCH (09:22)
[2022-02-09] MEDS: lisinopriL 5 MG TAB PO SCH (09:22)
[2022-02-09] MEDS: methylPREDNISolone SS 40 MG/ML VIAL IVP SCH (09:22)
[2022-02-09] MEDS: ASPIRIN 81 MG TAB.CHEW PO SCH (09:22)
[2022-02-09 12:00] VITALS: BP 135/43
[2022-02-09] MEDS: FOAM DRESSING TP SCH (12:43)
--- NOTE | 2022-02-09 14:00 | NUR ---
1100: CALLED [facility] FOR BED AVAILABILITY. FAXED PT INFORMATION. 1400: PER RENUKA FROM ADMISSIONS, PT IS GOING TO BED 111A. WILL ARRANGE TRANSPORT Addendum: 02/09/22 at 1410 by Boris Rios RN PT'S SON UPDATED ON DC PLAN
[2022-02-09 16:00] VITALS: BP 131/50
--- NOTE | 2022-02-09 16:00 | NUR ---
report given to osbaldo in [facility]
--- NOTE | 2022-02-09 18:17 | NUR ---
[employer] transport unable to orange picking supervisor pt, boots and shoes supervisor aware. family aware
--- NOTE | 2022-02-09 19:15 | NUR ---
TRANSFER OF CARE FROM DAY SHIFT, REPORT RECEIVED FROM PAOLO.
[2022-02-09 20:00] VITALS: BP 119/43
[2022-02-10] VITALS: BP 120/42
[2022-02-10] MEDS: ALBUTEROL SULFATE/IPRATROPIU 3 ML SOL IH SCH ×3 (00:27→07:52)
[2022-02-10] MEDS: Z-GUARD PASTE TP SCH (01:00)
[2022-02-10 04:00] VITALS: BP 106/37
[2022-02-10] MEDS: BLOOD GLUCOSE MONITORING 1 DEV DEV FS SCH (06:56)
--- NOTE | 2022-02-10 07:24 | NUR ---
TRANSFER OF CARE TO DAY SHIFT, REPORT GIVEN TO INÉS LEVY
--- NOTE | 2022-02-10 07:25 | NUR ---
RECEIVED BEDSIDE REPORT FROM JOVANNA PHOTOGRAPHIC ENGINEER RN, FOR CONTINUITY OF CARE. PT A/OX0, PERRLA, OPENS EYES TO VOICE. SR ON MONITOR. NO IV ACCESS. 2L NC. BOWEL SOUNDS HYPOACTIVE. GENERALIZED WEAKNESS. STANDARD PRECAUTION. BED LOCKED AND IN LOWEST POSITION.
[2022-02-10 08:00] VITALS: BP 116/40
[2022-02-10] MEDS: ASPIRIN 81 MG TAB.CHEW PO SCH (08:59)
[2022-02-10] MEDS: lisinopriL 5 MG TAB PO SCH (08:59)
[2022-02-10] MEDS: methylPREDNISolone SS 40 MG/ML VIAL IVP SCH (09:00)
[2022-02-10] MEDS: ENOXAPARIN 30 MG/0.3 ML SYR SUBQ SCH (09:02)
--- NOTE | 2022-02-10 09:58 | NUR ---
Transport arranged with [facility] ([phone]), via gurney with O2, to [facility], pickle solution maker time 11:00 am. Patient going to room 111, [facility] aware of transport time for patient. Above endorsed to the patients nurse Carr.
--- NOTE | 2022-02-10 10:08 | NUR ---
CALL TO GIVE REPORT TO [facility] , NURSE LYNN.
--- NOTE | 2022-02-10 11:14 | NUR ---
PICKED UP BY TRANSPORT SERVICE. NO SIGNS OF ACUTE DISTRESS. VSS. NO BELONGINGS WITH PT. DISCHARGE PACKET PROVIDED.
[2022-02-11] MEDS ORDERED: methylPREDNISolone SS 40 MG/ML VIAL IVP SCH (09:00)
== END 2022-02-10 11:15 | DRG 871 ==
LOC: MED 18:18 → MTU 23:24 → MIC 02-04 18:49 → MMU 02-05 20:43
PROVIDERS: ADMIT General Practice; ATTEND General Practice
PROC: 5A09357 Assistance with Respiratory Ventilation, Less than 24 Consecutive Hours, Continuous Positive Airway Pressure (ICD-10-PCS; 2022-02-03)
PROC: 5A0935A Assistance with Respiratory Ventilation, Less than 24 Consecutive Hours, High Flow/Velocity Cannula (ICD-10-PCS; 2022-02-03)
PROC: 5A09357 Assistance with Respiratory Ventilation, Less than 24 Consecutive Hours, Continuous Positive Airway Pressure (ICD-10-PCS; 2022-02-04)
PROC: 5A09357 Assistance with Respiratory Ventilation, Less than 24 Consecutive Hours, Continuous Positive Airway Pressure (ICD-10-PCS; 2022-02-04)
PROC: 5A0935A Assistance with Respiratory Ventilation, Less than 24 Consecutive Hours, High Flow/Velocity Cannula (ICD-10-PCS; principal; 2022-02-05)
DX: A41.9 Sepsis, unspecified organism (principal); E43 Unspecified severe protein-calorie malnutrition; J18.9 Pneumonia, unspecified organism; N17.0 Acute kidney failure with tubular necrosis; J96.22 Acute and chronic respiratory failure with hypercapnia; G93.41 Metabolic encephalopathy; J96.21 Acute and chronic respiratory failure with hypoxia; E87.0 Hyperosmolality and hypernatremia; I48.20 Chronic atrial fibrillation, unspecified; R65.20 Severe sepsis without septic shock; Y95 Nosocomial condition; E87.8 Other disorders of electrolyte and fluid balance, not elsewhere classified; E87.6 Hypokalemia; E83.51 Hypocalcemia; E86.0 Dehydration; F03.90 Unspecified dementia, unspecified severity, without behavioral disturbance, psychotic disturbance, mood disturbance, and anxiety; Z68.22 Body mass index [BMI] 22.0-22.9, adult; I10 Essential (primary) hypertension; J43.9 Emphysema, unspecified; Z20.822 Contact with and (suspected) exposure to COVID-19; Z79.82 Long term (current) use of aspirin
CPT/HCPCS: 36415; 36600; 71045; 71250; 80048; 80053; 81001; 82803; 82948; 83605; 83735; 84100; 85025; 85610; 85730; 87040; 87081; 87086; 92506; 92610; 93005; 94640; 94660; 96361; 96365; 96367; 99291; J0360; J1650; J1815; J2001; J2185; J2405; J2543; J2920; J3370; J3480; J3490; J7030; J7060; J7070; Q0092